=== PATIENT | female | born 1985 ===

== ENCOUNTER 2018-10-24 00:26 | Emergency (ER) | payer BC, OTHER ==
[2018-10-24 00:35] VITALS: RESP 16
[2018-10-24] MEDS ORDERED: Sodium Chloride 0.9% 1,000 ML IV STA (00:38)
[2018-10-24 01:51] LABS: BASO # 0.1 K/uL (0.0-0.2); BASO % 0.5 % (0.0-2.0); EOS # 0.1 K/uL (0.0-0.7); EOS % 1.1 % (0.0-4.0); HEMOGLOBIN 12.3 g/dL (12.0-16.0); LYMPH # 2.5 K/uL (1.0-4.3); MEAN CELL VOLUME 86.2 fl (81.0-99.0); MEAN CORPUSCULAR HEMOGLOBIN 28.1 pg (27.0-31.0); MEAN CORPUSCULAR HGB CONC 32.7 g/dL (33.0-37.0); MEAN PLATELET VOLUME 8.3 fl (7.2-11.7); MONO # 0.6 K/uL (0.0-0.8); MONO % 4.5 % (0.0-10.0); NEUT # 9.7 K/uL (1.8-7.0); NEUT % 74.9 % (50.0-75.0); RBC 4.36 Mil/uL (3.80-5.20); RED CELL DISTRIBUTION WIDTH 13.5 % (11.5-14.5); WHITE BLOOD COUNT 12.9 K/uL (4.8-10.8)
--- NOTE | 2018-10-24 01:53 | ED PDOC ---
HPI: Female Pain Time Seen by Provider: 10/24/18 00:27 Chief Complaint (Nursing): Female Genitourinary Chief Complaint (Provider): Female Genitourinary History Per: Patient History/Exam Limitations: no limitations Onset/Duration Of Symptoms: Days (2) Additional Complaint(s): 32 y/o female with no significant past medical history presents to the ED complaining of worsening dysuria and blood in urine that started x2 days ago. 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 Today at the end of her shift around 11 pm patient reports having a subjective fever and chills, and pain was significant enough that patient felt like she could stand due to the pain. Patient also reports body aches. She states she has never had a UTI this bad. Past Medical History Reviewed: Historical Data, Nursing Documentation, Vital Signs Vital Signs: Last Vital Signs Temp 98.6 F 10/24/18 00:33 Pulse 96 H 10/24/18 00:33 Resp 16 10/24/18 00:33 BP 138/88 10/24/18 00:33 Pulse Ox 98 10/24/18 00:33 - Medical History PMH: No Chronic Diseases - Surgical History Surgical History: No Surg Hx - Family History Family History: States: Unknown Family Hx - Home Medications Home Medications: Ambulatory Orders Medication Instructions Recorded Phenazopyridine HCl [Pyridium] 100 mg PO TID #6 tablet 10/24/18 Sulfamethoxazole/Trimethoprim 1 tab PO BID #14 tab 10/24/18 [Bactrim DS 800 mg-160 mg] - Allergies Allergies/Adverse Reactions: Allergies Allergy/AdvReac Type Severity Reaction Status Date / Time No Known Allergies Allergy Verified 10/11/15 06:09 Review of Systems ROS Statement: Except As Marked, All Systems Reviewed And Found Negative Constitutional: Positive for: Fever, Chills Gastrointestinal: Positive for: Abdominal Pain Genitourinary Female: Positive for: Dysuria, Hematuria Physical Exam - Reviewed Nursing Documentation Reviewed: Yes Vital Signs Reviewed: Yes - Physical Exam Appears: Positive for: Well, No Acute Distress Head Exam: Positive for: ATRAUMATIC, NORMAL INSPECTION, NORMOCEPHALIC Skin: Positive for: Normal Color, Warm, DRY Eye Exam: Positive for: EOMI, Normal appearance, PERRL Cardiovascular/Chest: Positive for: Regular Rate, Rhythm. Negative for: Murmur Respiratory: Positive for: Normal Breath Sounds. Negative for: Respiratory Distress Gastrointestinal/Abdominal: Positive for: Soft, Tenderness (suprapubic ) Pelvic Exam: Positive for: Other (urine is dark red) Back: Negative for: L CVA Tenderness, R CVA Tenderness Extremity: Positive for: Normal ROM. Negative for: Pedal Edema, Deformity Neurological/Psych: Positive for: Awake, Alert, Normal Tone. Negative for: Motor/Sensory Deficits - Laboratory Results Result Diagrams: 10/24/18 01:20 10/24/18 01:20 - ECG O2 Sat by Pulse Oximetry: 98 (RA) Pulse Ox Interpretation: Normal Medical Decision Making Medical Decision Making: Time: 00:37 MDM: Workup for hematuria/dysuria. Dark red color urine possibly due to having taken pyridium at home * Pain control with Pyridium * Toradol * IV Fluids * Urine * Basic Labs * Reassess 02:42 Patient's urine shows gross nitrates and high blood. Patient is to be discharged home. Was given first dose of bactrim in the ED. Given prescription for bactrim and pyridium as well as note for work. Patient is to follow up with her PMD. Scribe Attestation: Documented by Chris Gordon, acting as a scribe for Toya Kaur MD. Provider Scribe Attestation: All medical record entries made by the Scribe were at my direction and personally dictated by me. I have reviewed the chart and agree that the record accurately reflects my personal performance of the history, physical exam, medical decision making, and the department course for this patient. I have also personally directed, reviewed, and agree with the discharge instructions and disposition. Disposition - Clinical Impression Clinical Impression: Urinary tract infection - Disposition Disposition: Routine/Home Disposition Time: 02:42 Condition: IMPROVED Additional Instructions: Take Bactrim (antibiotic) twice per day for 7 days. Take Pyridium three times per day if needed for pain. Take Motrin for breakthrough pain. Follow up with primary medical doctor in one week for further evaluation. Prescriptions: Phenazopyridine HCl [Pyridium] 100 mg PO TID #6 tablet Sulfamethoxazole/Trimethoprim [Bactrim DS 800 mg-160 mg] 1 tab PO BID #14 tab Instructions: Urinary Tract Infection, Adult (DC) Forms: [employer] (Faroese), [facility] School/Work Excuse Print Language: ROMANIAN
[2018-10-24 02:01] LABS: BLOOD UREA NITROGEN 16 mg/dl (7-17); CALCIUM 8.8 mg/dL (8.4-10.2); GFR NON-AFRICAN AMERICAN > 60
[2018-10-24 02:35] LABS: URINE BACTERIA MANY (<OCC); URINE BILIRUBIN NEGATIVE (NEGATIVE); URINE BLOOD MODERATE (NEGATIVE); URINE CLARITY TURBID (Clear); URINE GLUCOSE (UA) 50 mg/dL (NEGATIVE); URINE LEUKOCYTE ESTERASE NEG Leu/uL (Negative); URINE PROTEIN 100 mg/dL (NEGATIVE)
[2018-10-24 02:38] LABS: URINE COLOR DARK BROWN (YELLOW)
[2018-10-24] MEDS ORDERED: Tmp-Smz 800 mg-160 mg DS Tab PO STA (02:42)
[2018-10-24] MEDS ORDERED: Tmp-Smz 800 mg-160 mg DS Tab ONE (03:00)
[2018-10-24 03:07] VITALS: BP 128/76; PULSE 81; TEMP 98.8
[2018-10-28 17:55] VITALS: O2SAT 98
== END 2018-10-24 03:06 | disposition home or self-care (01) ==
LOC: H.ER 00:26
DX: N39.0 Urinary tract infection, site not specified (principal)
CPT/HCPCS: 80048; 81003; 81025; 85025; 87086; 87181; 96374; 99284; J1885; J7030